=== PATIENT | male | born 1955 | race Native Hawaiian/Other Pacific Islander ===

== ENCOUNTER 2016-10-10 10:13 | Outpatient (CLI) | payer OTHER ==
[2016-10-10 11:49] LABS: SODIUM 139 mmol/L (136-145)
== END 2016-10-10 22:58 | disposition home or self-care (01) ==
LOC: LABW 10:13
PROVIDERS: Internal Medicine Cardiovascular Disease
DX: E78.4 Other hyperlipidemia (principal); Z79.899 Other long term (current) drug therapy; R06.02 Shortness of breath
CPT/HCPCS: 36415; 80048; 83880

== ENCOUNTER 2016-10-19 10:35 | Outpatient (CLI) | payer OTHER ==
[2016-10-19 10:51] LABS: POTASSIUM 4.2 mmol/L (3.6-5.2); SODIUM 136 mmol/L (136-145)
== END 2016-10-19 19:08 | disposition home or self-care (01) ==
LOC: LABW 10:35
PROVIDERS: Internal Medicine Cardiovascular Disease
DX: E78.4 Other hyperlipidemia (principal); Z79.899 Other long term (current) drug therapy; Z51.81 Encounter for therapeutic drug level monitoring
CPT/HCPCS: 36415; 80048

== ENCOUNTER 2021-04-01 16:35 | Emergency (ER) | payer OTHER ==
[~2021-04-01] VITALS: Ht 172.7 cm; Wt 131.5 kg
[2021-04-01 17:07] LABS: PLATELET COUNT 285 K/uL (142-355)
[2021-04-01 17:43] LABS: POTASSIUM 3.1 mmol/L (3.6-5.2); SODIUM 133 mmol/L (136-145)
[2021-04-02 00:54] LABS: PARTIAL THROMBOPLASTIN TIME 25.4 SECONDS (24.5-33.6)
[2021-04-02 04:15] VITALS: BP 116/87; TEMP 98.2
== END 2021-04-02 04:15 | disposition short-term general hospital (02) ==
LOC: ED 16:45
PROVIDERS: Family Medicine
DX: I48.91 Unspecified atrial fibrillation (principal); J90 Pleural effusion, not elsewhere classified; E83.51 Hypocalcemia; E83.42 Hypomagnesemia; S40.021A Contusion of right upper arm, initial encounter; Z11.52 Encounter for screening for COVID-19; F17.210 Nicotine dependence, cigarettes, uncomplicated; W18.39XA Other fall on same level, initial encounter; Y92.89 Other specified places as the place of occurrence of the external cause
CPT/HCPCS: 36415; 80053; 82150; 82550; 82553; 83690; 83735; 83880; 84484; 85027; 85379; 85610; 85730; 87635; 93005; 96360; 96365; 96366; 96375; 99284; J3475; J3490; Q9963; U0003

== ENCOUNTER 2021-08-24 13:48 | Outpatient (CLI) | payer OTHER | END 2021-08-24 20:30 | disposition home or self-care (01) | LOC: LAB 13:48 | PROVIDERS: ATTEND Nurse Practitioner Family | DX: N39.0 Urinary tract infection, site not specified (principal); L02.31 Cutaneous abscess of buttock | CPT/HCPCS: 81000; 87070; 87077; 87086; 87088; 87186; 87205 ==

== ENCOUNTER 2021-08-24 18:17 | Emergency (ER) | payer OTHER ==
[~2021-08-24] VITALS: Ht 172.7 cm; Wt 112.5 kg
[2021-08-24 18:53] LABS: PLATELET COUNT 591 K/uL (142-355)
[2021-08-24 19:03] LABS: POTASSIUM 4.2 mmol/L (3.6-5.2)
[2021-08-24 20:26] VITALS: BP 130/88; TEMP 98.3
== END 2021-08-24 20:26 | disposition home or self-care (01) ==
LOC: ED 18:17
PROVIDERS: Hospitalist
DX: N39.0 Urinary tract infection, site not specified (principal); T83.84XA Pain due to genitourinary prosthetic devices, implants and grafts, initial encounter; R33.8 Other retention of urine; Y84.6 Urinary catheterization as the cause of abnormal reaction of the patient, or of later complication, without mention of misadventure at the time of the procedure; Y92.098 Other place in other non-institutional residence as the place of occurrence of the external cause
CPT/HCPCS: 80053; 83690; 85027; 96365; 96375; 99284; J0696; J1885; J2405

== ENCOUNTER 2021-12-05 14:48 | Outpatient (CLI) | payer OTHER | END 2021-12-05 20:16 | disposition home or self-care (01) | LOC: LAB 14:48 | PROVIDERS: ATTEND Obstetrics & Gynecology Obstetrics | DX: N39.0 Urinary tract infection, site not specified (principal) | CPT/HCPCS: 81000; 87086; 87088 ==